=== PATIENT | female | born 1995 | race African-American/Black ===

== ENCOUNTER → 2017-07-24 | Day surgery (SDC) | payer BC ==
--- NOTE | 2017-07-23 14:22 | Diagnostic Imaging Report ---
PROCEDURE:X-RAY ABDOMEN - KUB COMPARISON:[facility], CT, CT ABDOMEN/PELVIS WO, 07/12/2017, 11:30. INDICATIONS:PREOPERATIVE XRAY FOR KIDNEY STONE SURGERY FINDINGS: Nonobstructed bowel gas pattern. Right double-J internal ureteral stent in place. 5 mm radiopaque density projecting in the expected location of the distal right pelvis/proximal right ureter, likely corresponds to previously visualized nonobstructing calculus. 3 mm nonobstructing calculus in the mid to inferior aspect of the left renal shadow. No other radiopaque densities project over the expected course of the ureters or bladder. No acute bony abnormalities. CONCLUSION: 1. 5 mm calculus in the distal right pelvis/proximal right ureter. 2. 3 mm nonobstructing calculus in the mid to inferior aspect of the left renal shadow. 3. Right double-J internal ureteral stent in place. Sanchez Iglesias M.D. Dictated by: Sanchez Iglesias M.D. on 07/23/2017 at 14:30 Electronically approved by: Sanchez Iglesias M.D. on 07/23/2017 at 14:30
[~2017-07-24] MED LIST: BACTRIM DS TAB1 EACH PO; CEFTRIAXONE SOD 1 GM VIAL ONE; DEXAMETHASONE SOD PHOS INJ 4 MG/ML VIAL IV ONE; FENTANYL CITRATE/PF 100MCG/2 ML INJ ONE; LIDOCAINE HCL 2% LOCAL INJ 5 ML SDV VIAL INJ ONE; MIDAZOLAM HCL 2 MG/2 ML VIAL ONE; ONDANSETRON HCL INJ 2 MG/ML VIAL IV ONE; PROPOFOL IV EMULSION 10 MG/ML 20 ML VIAL IV ONE; SEVOFLURANE INHAL SOLN 250 ML PEN BTL INH ONE; TYLENOL WITH C1 EACH PO
--- NOTE | 2017-07-24 20:08 | Operative Report ---
DATE OF PROCEDURE: July 24, 2017 PREOPERATIVE DIAGNOSES 1. Indwelling ureteral stent. 2. Right ureteral calculus. 3. Right hydronephrosis. POSTOPERATIVE DIAGNOSES 1. Indwelling ureteral stent. 2. Right ureteral calculus. 3. Right hydronephrosis. PROCEDURES 1. Cystourethroscopy with removal of right indwelling stent (complicated secondary to incrustation). 2. Cystourethroscopy with stone manipulation pushing the stone from the ureter into the renal pelvis (entirely separate procedure for ureteral calculus). 3. Staged shockwave lithotripsy (entirely separate procedure for kidney stone). 4. Supervision of fluoroscopy. 5. Interpretation of retrograde pyelography. ANESTHESIA: General. ESTIMATED BLOOD LOSS: Minimal. COMPLICATIONS: None. INDICATIONS: Malorie Villavicencio is a 22-year-old female with a history of a 6-mm proximal ureteral stone. She and I had a long discussion about the alternatives, risks and benefits including doing nothing, shockwave lithotripsy, percutaneous surgery. She voiced understanding of options, alternatives, risks and benefits and elected to proceed. PROCEDURE IN DETAIL: After informed consent was obtained, the patient was taken to the operative suite and placed supine on the operating table and underwent general anesthesia by the anesthesia service. She was then placed in the dorsal lithotomy position and sterilely prepped and draped in the standard fashion for cystoscopy. A 22.5-Namibian cystoscope was inserted per urethra. No masses noted. Panendoscopy demonstrated no tumors and no stones. Guidewire was inserted alongside the stent and the stent was seen to be encrusted. It was grasped and it was removed intact. Utilizing a wire and 5-Namibian open-ended catheter and contrast the stone was manipulated into the renal pelvis. The stone was then localized in X, Y, and Z planes. A total of 3000 shocks were delivered to the stone. The patient tolerated the procedure well with good fragmentation. The stent was removed. The bladder was drained and the patient was awakened from anesthesia and transported to the recovery room in excellent condition. SUPERVISION OF FLUOROSCOPY AND INTERPRETATION OF RETROGRADE PYELOGRAPHY: I was present the entire procedure, and I supervised the use of fluoroscopy. There was no radiologist present. Attention was turned toward the right ureter and it was catheterized with a 5-Namibian open-ended catheter and retrograde pyelogram was performed and revealed previous ureteral calculus in the renal pelvis, mild hydronephrosis and removal of the ureteral stent. Job#: [id number] GH
--- NOTE | 2017-08-09 08:30 | Discharge Summary ---
PRINCIPAL DIAGNOSES 1. Right ureterolithiasis. 2. Morbid obesity. 3. Right flank pain. 4. Dehydration. 5. Nausea and vomiting. SECONDARY DIAGNOSIS: Morbid obesity. CHIEF COMPLAINT: Flank pain. HISTORY OF PRESENT ILLNESS: A 22-year-old woman developing right flank pain. Refer to the H and P for further details. HOSPITAL COURSE: Patient was found to have right ureterolithiasis with right flank pain and treated with IV fluids and IV antibiotics. Urology consulted to assist in management. She had morbid obesity and dehydration. Rehydrated and nausea and vomiting treated with antiemetics. Patient did well and subsequently transitioned out of the hospital. FOLLOWUP: Primary care doctor in 1 week and urology in 2 weeks. CONDITION ON DISCHARGE: Stable and improving. DISCHARGE LOCATION: Home. EFRAIN HANSEN MD Job#: [id number] CT
== END | disposition home or self-care (01) ==
LOC: OR 11:21
PROVIDERS: ATTEND Urology
DX: N20.1 Calculus of ureter (principal); N13.30 Unspecified hydronephrosis; Z46.6 Encounter for fitting and adjustment of urinary device; J06.9 Acute upper respiratory infection, unspecified; E66.01 Morbid (severe) obesity due to excess calories; E86.0 Dehydration; F41.9 Anxiety disorder, unspecified
CPT/HCPCS: 50590; 74000; 81025 ×2; C1758; J0696; J1100; J2001; J2250; J2405

== ENCOUNTER 2017-09-16 12:41 | Observation (INO) | payer BC ==
[~2017-09-16] VITALS: Ht 175.3 cm; Wt 125.7 kg
[~2017-09-16 12:41] MED LIST changes: -CEFTRIAXONE SOD 1 GM VIAL ONE; -DEXAMETHASONE SOD PHOS INJ 4 MG/ML VIAL IV ONE; -FENTANYL CITRATE/PF 100MCG/2 ML INJ ONE; -LIDOCAINE HCL 2% LOCAL INJ 5 ML SDV VIAL INJ ONE; -MIDAZOLAM HCL 2 MG/2 ML VIAL ONE; -ONDANSETRON HCL INJ 2 MG/ML VIAL IV ONE; -PROPOFOL IV EMULSION 10 MG/ML 20 ML VIAL IV ONE; -SEVOFLURANE INHAL SOLN 250 ML PEN BTL INH ONE
--- OUTSIDE RECORDS SUMMARY | 2017-09-16 12:44 | XMS REPORT ---
Author Author [facility] Address Unknown Phone Unavailable Care Team Providers Care Film Librarian Name Role Phone LAZARA VILLAREAL Unavailable Unavailable EFRAIN HANSEN Unavailable Unavailable Problems This patient has no known problems. Allergies, Adverse Reactions, Alerts This patient has no known allergies or adverse reactions. Medications This patient has no known medications. Results Test Description Test Time Test Comments Text Results Atomic Results Result Comments ABDOMEN-1VIEW (KUB) [place] [address] Patient Name: LILIANA BROOKE MR #: [id number] : 1995 Age/Sex: 22/F Req #: [id number] Adm Physician: Ordered by: LAZARA VILLAREAL MD Report #: [id number] Location: OR Room/Bed: Procedure: [id number] DX/ABDOMEN-1VIEW (KUB) Exam Date: 07/23/17 Exam Time : 1335 REPORT STATUS: Signed PROCEDURE: X-RAY ABDOMEN - KUB COMPARISON: [facility], CT, CT ABDOMEN/PELVIS WO, 07/12/2017, 11:30. INDICATIONS: PREOPERATIVE XRAY FOR KIDNEY STONE SURGERY FINDINGS: Nonobstructed bowel gas pattern. Right double-J internal ureteral stent in place. 5 mm radiopaque density projecting in the expected location of the distal right pelvis/proximal right ureter, likely corresponds to previously visualized nonobstructing calculus. 3 mm nonobstructing calculus in the mid to inferior aspect of the left renal shadow. No other radiopaque densities project over the expected course of the ureters or bladder. No acute bony abnormalities. CONCLUSION: 1. 5 mm calculus in the distal right pelvis/proximal right ureter. 2. 3 mm nonobstructing calculus in the mid to inferior aspect of the left renal shadow. 3. Right double-J internal ureteral stent in place. Yemi Iglesias M.D. Dictated by: Yemi Iglesias M.D. on 07/23/2017 at 14:30 Electronically approved by: Yemi Iglesias M.D. on 07/23/2017 at 14:30 Dictated By: YEMI IGLESIAS MD 1430 Transcribed By: VESTA on 07/23/17 1430 COPY TO: LAZARA VILLAREAL MD ABDOMEN-1VIEW (KU) [place] [address] Patient Name: LILIANA BROOKE MR #: [id number] : 1995 Age/Sex: 22/F Req #: [id number] Adm Physician: EFRAIN HANSEN MD Ordered by: LAZARA VILLAREAL MD Report #: [id number] Location: [facility] Room/Bed: [place] [address] _ Procedure: [id number] DX/ABDOMEN-1VIEW (KUB) Exam Date: 07/13/17 Exam Time: 1249 REPORT STATUS: Signed EXAM: Abdomen, one view INDICATION: Pain. COMPARISON: Abdomen one view 07/13/2017. CT abdomen and pelvis 07/12/2017 FINDINGS: LINES: None. Bowel: No air fluid levels.. No pneumoperitoneum.. Moderate amount of retained feces and air are noted in the colon and rectum. Calculus again noted to project over the proximal right ureter at the level of the right transverse process of L2. No calcifications project over the renal shadows, expected course of the left ureter, and bladder. Soft tissues: Normal. Bones: No acute osseous abnormality. Impression: Right ureteral calculus. Signed by: Dr. Jade Tejada M.D. on 07/13/2017 1:13 PM Dictated By: JADE TEJADA MD 1313 COPY TO: LAZARA VILLAREAL MD ABDOMEN-1VIEW (KUB) [place] [address] Patient Name: LILIANA BROOKE MR #: [id number] : 1995 Age/Sex: 22/F Req #: [id number] Adm Physician: EFRAIN HANSEN MD Ordered by: LAVERNE WHITEHEAD MD Report #: [id number] Location: [facility] Room/Bed: [place] [address] Procedure: [id number] DX/ABDOMEN-1VIEW (KUB) Exam Date: 07/13/17 Exam Time: 0525 REPORT STATUS: Signed EXAM: ABDOMEN- 1VIEW (KUB), supine DATE: 07/13/2017 7:00 AM Time stamp on exam: 0524 hours INDICATION: Follow-up stone COMPARISON: CT of the abdomen and pelvis without IV contrast July 12, 2017 FINDINGS: LINES/TUBES: None BOWEL PATTERN: No evidence for obstruction. SOFT TISSUES: Stable position 6 mm stone in the right proximal ureter at the L2/L3 level. LUNG BASES: Not included BONES: No acute findings. IMPRESSION: Stable position 6 mm stone in the right proximal ureter at the L2/L3 level. Signed by: Dr. Lana Rivers M.D. on 07/13/2017 6:21 AM Dictated By: LANA RIVERS MD 0 Transcribed By: MILA on 07/13/17620 COPY TO: LAVERNE WHITEHEAD MD CT ABDOMEN/PELVIS WO [place] [address] Patient Name: LILIANA BROOKE MR #: [id number] : 1995 Age/Sex: 22/F Req #: [id number] Adm Physician: Ordered by: REGULO HARTLEY Report #: [id number] Location: ER Room/Bed: Procedure: [id number] CT/CT ABDOMEN/PELVIS WO Exam Date: 07/12/17 Exam Time: 1120 REPORT STATUS: Signed EXAM: CT Abdomen and Pelvis WITHOUT contrast INDICATION: COMPARISON: None. TECHNIQUE : Abdomen and pelvis were scanned utilizing a multidetector helical scanner from the lung base to the pubic symphysis without administration of IV contrast. Absence of intravenous contrast decreases sensitivity for detection of focal lesions and vascular pathology. Coronal and sagittal reformations were obtained. Renal stone protocol was performed. IV CONTRAST: None ORAL CONTRAST: Water COMPLICATIONS: None RADIATION DOSE : Total DLP: 904 mGy*cm Estimated effective dose: (DLP x 0.015 x size factor) mSv CTDIvol has been reviewed. It is below the limits set by the Radiation Protocol Committee (RPC). FINDINGS: LINES and TUBES : None. LOWER THORAX: Unremarkable HEPATOBILIARY: Unenhanced liver is unremarkable. No biliary ductal dilation. GALLBLADDER: No radio -opaque stones or sludge. No wall thickening. SPLEEN: No splenomegaly. PANCREAS: No focal masses or ductal dilatation. ADRENALS: No adrenal nodules KIDNEYS/URETERS: 6 mm obstructing proximal right ureteral calculus with minimal right hydronephrosis. 4 mm calculus in the lower pole of the left kidney. GI TRACT: No abnormal distention, wall thickening, or evidence of bowel obstruction. Appendix is normal. PELVIC ORGANS/BLADDER: Unremarkable. LYMPH NODES: No lymphadenopathy. VESSELS: Unremarkable. PERITONEUM / RETROPERITONEUM: No free air or fluid. BONES: Unremarkable. SOFT TISSUES: Small narrow neck fat-containing supraumbilical ventral hernia. IMPRESSION: 1. 6 mm obstructing proximal right ureteral calculus with minimal right hydronephrosis. 2. 4 mm nonobstructive left renal calculus. Signed by: Dr. Richy Hickey MD on 07/12/2017 11:51 AM Dictated By: RICHY HICKEY MD 1151 Transcribed By : MILA on 07/12/17 1151 COPY TO: REGULO HARTLEY
--- OUTSIDE RECORDS SUMMARY | 2017-09-16 12:44 | XMS REPORT | Clinical Summary ---
Author Author [facility] Address Unknown Phone Unavailable Care Team Providers Care Hand Polisher Name Role Phone Joy Novoa MD PCP Allergies No Known Allergies Current Medications Prescription Sig. Disp. Refills Start End Date Status Date acetaminophen-codeine TK 1 T PO Q 4 H PRN P 0 07/14/20 Active (TYLENOL WITH CODEINE #3) 17 300-30 mg per tablet ibuprofen (ADVIL,MOTRIN) Take 1 tablet (800 mg 21 tablet 0 09/08/19 10/09/19 Active 800 MG tablet total) by mouth 3 (three) 18 18 times a day for 30 days. tamsulosin (FLOMAX) 0.4 Take 1 capsule (0.4 mg 30 capsule 0 09/08/19 10/09/19 Active mg capsule,extended total) by mouth daily for 18 18 release 24hr 30 days. HYDROcodone-acetaminophen Take 1 tablet by mouth 20 tablet 0 09/08/19 09/11/19 (NORCO) 7.5-325 mg per every 6 (six) hours as 18 18 tablet needed for moderate pain for up to 20 doses. Max Daily Amount: 4 tablets Active Problems Not on file Encounters Date Type Specialty Care Team Description 09/10/2017 Orders Only General Surgery Yann Zuniga RN Morbid obesity due to excess calories (Primary Dx) 09/08/2017 Emergency Emergency Medicine Madan Naqvi, Kidney stone (Primary Dx) DO 09/03/2017 Office Visit General Surgery Mohan Lay MD Morbid obesity due to excess calories (Primary Dx); Essential hypertension 09/03/2017 Orders Only General Surgery Yann Zuniga RN Morbid obesity due to excess calories (Primary Dx) after 09/15/2016 Family History Medical History Relation Name Comments Hypertension Father Hypertension Mother Relation Name Status Comments Father Mother Social History Tobacco Use Types Packs/Day Years Used Date Never Smoker Smokeless Tobacco: Never Used Alcohol Use Drinks/Week oz/Week Comments Yes occassionally Sex Assigned at Date Recorded Not on file Last Filed Vital Signs Vital Sign Reading Time Taken Blood Pressure 116/59 09/08/2017 1:05 PM CAREER RESOURCE TECHNICIAN Pulse 83 09/08/2017 1:05 PM CAREER RESOURCE TECHNICIAN Temperature 36.7 C (98.1 F) 09/08/2017 1:05 PM CAREER RESOURCE TECHNICIAN Respiratory Rate 18 09/08/2017 1:05 PM CAREER RESOURCE TECHNICIAN Oxygen Saturation 98% 09/08/2017 1:05 PM CAREER RESOURCE TECHNICIAN Inhaled Oxygen - - Concentration Weight 123 kg (270 lb 9.6 oz) 09/03/2017 11:28 AM CAREER RESOURCE TECHNICIAN Height 172.7 cm (5' 8") 09/08/2017 10:17 AM CAREER RESOURCE TECHNICIAN Body Mass Index 41.14 09/03/2017 11:28 AM CAREER RESOURCE TECHNICIAN Plan of Treatment Date Type Specialty Care Team Description 09/23/2017 Consult Weight Management Mohan Lay MD [address] [facility] [address] [place] [address] Armando Gardner, TRU 09/23/2017 Consult Weight Management Mohan Lay MD [address] [facility] [address] [place] [address] Terri Fang, [employer] Health Maintenance Due Date Last Done Comments PAP SMEAR 2015 INFLUENZA VACCINE 03/05/2017 Results * Urinalysis (09/08/2017 12:24 PM) Component Value Ref Range Glucose, UA Negative Negative Bilirubin, UA Negative Negative Ketones, UA Negative Negative Specific gravity, UA 1.020 1.001 - 1.035 Blood, UA Moderate (A) Negative pH, UA 7.0 5.0 - 8.5 Protein, UA Negative Negative Urobilinogen, UA <2.0 <2.0 Nitrite, UA Negative Negative Leukocyte esterase, UA Trace (A) Negative Color, UA Yellow Appearance, UA Cloudy Specimen Performing Laboratory Urine [facility], [address] [address] * hCG qualitative, urine screen (09/08/2017 12:24 PM) Component Value Ref Range hCG qualitative, urine NegativeComment: Sensitivity of HCG test: 25 mIU/mL Specimen Performing Laboratory Urine [facility] OF PATHOLOGY AND GENOMIC MEDICINE, [facility] [id number] [place] [address] * CT Renal Stone Protocol (09/08/2017 11:17 AM) Specimen Performing Laboratory [facility] [address] [place] [address] Narrative EXAMINATION:CT RENAL STONE PROTOCOL CLINICAL HISTORY: 22 years Femaleleft kidney stone COMPARISON:None. TECHNIQUE:CT of the abdomen and pelvis without intravenous contrast. Absence of intravenous contrast decreases sensitivity for detection of focal lesions and vascular pathology. CT imaging was performed with iterative reconstruction techniques and/or automated exposure control to reduce radiation dose. FINDINGS: LOWER THORAX: 1. Lung bases are clear. ABDOMEN: 1.Unenhanced liver, gallbladder, spleen, adrenal glands, pancreas are normal in appearance. 2.The course of the left ureter is obscured in the pelvis. There is a 3 mm calcification in the expected region of the very distal left ureter approximately 1 cm from the UVJ (series 2, image 171). There is no left-sided hydronephrosis, but there is some mild left-sided caliectasis. No other left-sided calcifications. 3.4 mm nonobstructing calyceal stone lower pole right kidney. No right hydronephrosis or ureteral calcification. 4.Absence of oral contrast decreases sensitivity for detection of bowel pathology. No obstruction. The appendix is normal. 5.Abdominal aorta is nonaneurysmal. There is no abdominal adenopathy or ascites. There is a small fat-containing periumbilical hernia. There is also a small ventral supraumbilical fat-containing hernia 4 cm above the umbilicus. No free air. PELVIS: 1.No pelvic adenopathy or mass. There may be trace physiologic fluid in the pelvis. 2.Bones are intact. IMPRESSION: 1.Indeterminant 3 mm calcification within the left pelvis. Given the history of left flank pain and some mild left-sided caliectasis, this is most concerning for a small stone in the distal left ureter. Phlebolith is not entirely excluded. Clinical correlation. Follow-up can be obtained as indicated. 2.4 mm nonobstructing stone lower pole right kidney. 3.Additional findings as above. [facility]-[id number] Procedure Note [facility], Radiology Results Incoming - 09/08/2017 11:39 AM CAREER RESOURCE TECHNICIAN EXAMINATION: CT RENAL STONE PROTOCOL CLINICAL HISTORY: 22 years Female left kidney stone COMPARISON: None. TECHNIQUE: CT of the abdomen and pelvis without intravenous contrast. Absence of intravenous contrast decreases sensitivity for detection of focal lesions and vascular pathology. CT imaging was performed with iterative reconstruction techniques and/or automated exposure control to reduce radiation dose. FINDINGS: LOWER THORAX: 1. Lung bases are clear. ABDOMEN: 1. Unenhanced liver, gallbladder, spleen, adrenal glands, pancreas are normal in appearance. 2. The course of the left ureter is obscured in the pelvis. There is a 3 mm calcification in the expected region of the very distal left ureter approximately 1 cm from the UVJ (series 2, image 171). There is no left-sided hydronephrosis, but there is some mild left-sided caliectasis. No other left-sided calcifications. 3. 4 mm nonobstructing calyceal stone lower pole right kidney. No right hydronephrosis or ureteral calcification. 4. Absence of oral contrast decreases sensitivity for detection of bowel pathology. No obstruction. The appendix is normal. 5. Abdominal aorta is nonaneurysmal. There is no abdominal adenopathy or ascites. There is a small fat-containing periumbilical hernia. There is also a small ventral supraumbilical fat-containing hernia 4 cm above the umbilicus. No free air. PELVIS: 1. No pelvic adenopathy or mass. There may be trace physiologic fluid in the pelvis. 2. Bones are intact. IMPRESSION: 1. Indeterminant 3 mm calcification within the left pelvis. Given the history of left flank pain and some mild left-sided caliectasis, this is most concerning for a small stone in the distal left ureter. Phlebolith is not entirely excluded. Clinical correlation. Follow-up can be obtained as indicated. 2. 4 mm nonobstructing stone lower pole right kidney. 3. Additional findings as above. [facility]-[id number] * Estimated GFR (09/08/2017 10:34 AM) Component Value Ref Range GFR Non Af Amer 68 mL/min/1.73 m2 GFR Af Amer 83 mL/min/1.73 m2 Comment: Chronic kidney disease: <60 mL/min/1.73m2 Kidney failure: <15 mL/min/1.73m2 The estimated GFR is calculated from the IDMS-traceable Modification of Diet in Renal Disease Equation. The accuracy of the calculation is poor when the creatinine is normal. Calculated values >90 mL/min/1.73m2 are not reported. This equation has not been validated in children (<18 years), women, the elderly (>70 years), or ethnic groups other than Caucasians and Americans. Specimen Performing Laboratory Plasma specimen [facility] OF [facility]IC[facility] [address] * CBC with platelet and differential (09/08/2017 10:34 AM) Component Value Ref Range WBC 7.23 4.50 - 11.00 k/uL RBC 4.22 4.20 - 5.50 m/uL HGB 11.7 (L) 12.0 - 16.0 g/dL HCT 37.0 37.0 - 47.0 % MCV 87.7 82.0 - 100.0 fL MCH 27.7 27.0 - 34.0 pg MCHC 31.6 31.0 - 37.0 g/dL RDW - SD 40.5 37.0 - 55.0 fL MPV 9.4 8.8 - 13.2 fL Platelet count 430 (H) 150 - 400 k/uL Neutrophils 61.4 39.0 - 69.0 % Lymphocytes 29.3 25.0 - 45.0 % Monocytes 7.3 0.0 - 10.0 % Eosinophils 1.7 0.0 - 5.0 % Basophils 0.3 0.0 - 1.0 % Specimen Performing Laboratory Blood [facility] [address] * Comprehensive metabolic panel (09/08/2017 10:34 AM) Component Value Ref Range Sodium 138 128 - 145 mEq/L Potassium 4.7 3.6 - 5.1 mEq/L CO2 26 18 - 33 mEq/L Chloride 107 98 - 108 mEq/L Glucose 102 73 - 118 mg/dL Calcium 9.3 8.0 - 10.3 mg/dL BUN 15 7 - 22 mg/dL Creatinine 1.0 0.6 - 1.2 mg/dL Alkaline phosphatase 79 42 - 141 U/L ALT 17 10 - 47 U/L AST 28 11 - 38 U/L Total bilirubin 0.5 0.2 - 1.6 mg/dL Albumin 3.7 3.3 - 5.5 g/dL Protein 6.9 6.4 - 8.1 g/dL Anion gap 5 (L) 7 - 15 mEq/L Comment: Starting from November , anion gap calculation no longer incorporates potassium. Please note the change. A/G ratio 1.2 0.7 - 3.8 Specimen Performing Laboratory Plasma specimen [facility] OF PATHOLOGY [facility] GENOMIC MEDICINE, [address] [address] after 09/15/2016 Insurance Payer Benefit Subscriber ID Type Phone Address Plan / Group BCBS [employer] xxxxxxxxxxxx [facility] [place] [address]
[2017-09-16] MEDS ORDERED: KETOROLAC TROMETHAMINE 30 MG/ML VIAL IV STA (13:04)
[2017-09-16 13:26] LABS: BASOPHILS # (AUTO) 0.1 (0.0-0.1); BASOPHILS % 0.9 % (0.0-1.0); EOSINOPHILS # (AUTO) 0.1 (0.0-0.4); EOSINOPHILS % 1.5 % (0.0-6.0); HEMATOCRIT 37.2 % (34.2-44.1); HEMOGLOBIN 11.8 g/dL (12.0-16.0); LYMPHOCYTES # (AUTO) 1.6 (1.0-3.2); LYMPHOCYTES % 24.8 % (18.0-39.1); MEAN CORPUSCULAR HEMOGLOBIN 27.6 pg (28-32); MEAN CORPUSCULAR HGB CONC 31.7 g/dL (31-35); MEAN CORPUSCULAR VOLUME 87.1 fL (81-99); MONOCYTES # (AUTO) 0.5 (0.2-0.8); MONOCYTES % 7.4 % (4.4-11.3); NEUTROPHILS # (AUTO) 4.3 (2.1-6.9); NEUTROPHILS % 65.1 % (38.7-80.0); PLATELET COUNT 397 x10e3/uL (140-360); RED BLOOD COUNT 4.27 x10e6/uL (3.6-5.1)
[2017-09-16 13:28] LABS: BILIRUBIN,URINE NEGATIVE (NEGATIVE); KETONES,URINE NEGATIVE (NEGATIVE); LEUKOCYTE ESTERASE ,URINE NEGATIVE (NEGATIVE); NITRITE,URINE NEGATIVE (NEGATIVE); URINE UROBILINOGEN 0.2 mg/dL (0.2 - 1)
[2017-09-16 13:29] LABS: COLOR,URINE YELLOW (YELLOW); PROTEIN,URINE DIPSTICK 1+ (NEGATIVE)
[2017-09-16 13:43] LABS: ALANINE AMINOTRANSFERASE 14 IU/L (0-55); ALBUMIN 4.1 g/dL (3.5-5.0); ALBUMIN/GLOBULIN RATIO 1.1 (0.8-2.0); ALKALINE PHOSPHATASE 75 IU/L (40-150); BLOOD UREA NITROGEN 14 mg/dL (7-26); BUN/CREATININE RATIO 15 (6-25); CALCIUM 9.1 mg/dL (8.4-10.2); CARBON DIOXIDE 21 mmol/L (22-29); CHLORIDE 105 mmol/L (98-107); CREATININE, SERUM 0.95 mg/dL (0.57-1.11); EST GLOMERULAR FILTRATION RATE > 60 ML/MIN (60-); GLUCOSE 90 mg/dL (74-118); SODIUM 136 mmol/L (136-145)
[2017-09-16 13:45] LABS: CLARITY,URINE HAZY (CLEAR); EPITHELIAL CELLS,URINE MODERATE /LPF
[2017-09-16 13:47] LABS: BACTERIA,URINE RARE /HPF; RBC,URINE >50 /HPF (0-5)
--- NOTE | 2017-09-16 14:35 | Diagnostic Imaging Report ---
PROCEDURE: CT ABDOMEN AND PELVIS WITHOUT CONTRAST COMPARISON:CT abdomen/pelvis 07/12/17. INDICATIONS:LEFT SIDE PAIN TECHNIQUE: Axial CT images through the abdomen and pelvis were obtained from the lung bases to the pubic symphysis. Coronal and sagittal reformations were created. DLP: 904 mGY*cm FINDINGS: Right kidney: The collecting system in is distended. A calculus in the proximal ureter measures 5 mm. There are no intrarenal calculi. The cortex is edematous. No cortical mass. Left kidney: No renal calculus, mass, or hydronephrosis. Bladder/ureters: The bladder is underdistended but otherwise normal. The right ureter distal to the calculus in the proximal ureter is collapsed. The left ureter is collapsed throughout its course. Liver: Normal attenuation. No mass or intrahepatic biliary ductal dilatation. Spleen: Normal size and attenuation without mass. Gallbladder: Present and is normal. Common bile duct is normal in diameter. Pancreas: Normal attenuation without mass or ductal dilatation. Adrenal Glands: No evidence of mass. Vasculature: Normal morphology and diameter. GI: The stomach is normal. Small bowel and large bowel are normal in diameter with normal wall thickness. The appendix is normal. Peritoneum/Retroperitoneum: No free fluid, fluid collection, or mass. Reproductive organs: The uterus is present and normal morphology. No adnexal mass. MSK: Unremarkable for age. Lung bases: Clear. The visualized portion of the mediastinum is normal. CONCLUSION: Obstructing calculus in the proximal right ureter. There are no intrarenal calculi. The remainder of the abdomen/pelvis is normal. Dictated by: Carmen Lyn M.D. on 09/16/2017 at 14:45 Electronically approved by: Carmen Lyn M.D. on 09/16/2017 at 14:45
[2017-09-16] MEDS ORDERED: SODIUM CHLORIDE 0.9% 1000ML 1,000 ML IV SCH (16:14)
[2017-09-16] MEDS ORDERED: MORPHINE SULFATE 2 MG/ML SYR IV PRN (16:15)
[2017-09-16] MEDS ORDERED: ONDANSETRON HCL INJ 2 MG/ML VIAL IV PRN ×2 (16:15→22:30)
[2017-09-16] MEDS: CEFTRIAXONE SOD 1 GM VIAL IV SCH (16:33)
[2017-09-16] MEDS ORDERED: IBUPROFEN400 MG PO (16:34)
--- OUTSIDE RECORDS SUMMARY | 2017-09-16 16:41 | XMS REPORT | Clinical Summary ---
Author Author [facility] Address Unknown Phone Unavailable Care Team Providers Care Guest Relations Officer Name Role Phone Joy Novoa MD PCP [...] Taken Blood Pressure 116/59 09/08/2017 1:05 PM PULP GRINDER FEEDER Pulse 83 09/08/2017 1:05 PM PULP GRINDER FEEDER Temperature 36.7 C (98.1 F) 09/08/2017 1:05 PM PULP GRINDER FEEDER Respiratory Rate 18 09/08/2017 1:05 PM PULP GRINDER FEEDER Oxygen Saturation 98% 09/08/2017 1:05 PM PULP GRINDER FEEDER Inhaled Oxygen - - Concentration Weight 123 kg (270 lb 9.6 oz) 09/03/2017 11:28 AM PULP GRINDER FEEDER Height 172.7 cm (5' 8") 09/08/2017 10:17 AM PULP GRINDER FEEDER Body Mass Index 41.14 09/03/2017 11:28 AM PULP GRINDER FEEDER Plan of Treatment Date Type Specialty Care Team Description 09/23/2017 Consult Weight Management Mohan Lay MD [address] [facility] [address] [place] [address] Armando Gardner, TRU 09/23/2017 Consult Weight Management Mohan Lay MD [address] [facility] [address] [place] [address] Terri Fang, GEOTECHNICAL INTERN Health Maintenance Due Date Last Done Comments [...] [facility] DEPARTMENT OF PATHOLOGY AND GENOMIC MEDICINE, [address] [address] * hCG qualitative, urine screen (09/08/2017 12:24 PM) Component Value Ref Range hCG qualitative, urine NegativeComment: Sensitivity of HCG test: 25 mIU/mL Specimen Performing Laboratory Urine DEPARTMENT OF PATHOLOGY AND GENOMIC MEDICINE, [facility] [address] [place] [address] * CT Renal Stone Protocol (09/08/2017 11:17 AM) Specimen Performing Laboratory [facility] [address] [place] [address] Narrative EXAMINATION:CT RENAL STONE PROTOCOL CLINICAL HISTORY: [...] pole right kidney. 3.Additional findings as above. [facility]-[id number] Procedure Note [facility], Radiology Results Incoming - 09/08/2017 11:39 AM PULP GRINDER FEEDER EXAMINATION: CT RENAL STONE PROTOCOL CLINICAL HISTORY: [...] right kidney. 3. Additional findings as above. [facility]-[id number] * Estimated GFR (09/08/2017 10:34 AM) Component [...] and Americans. Specimen Performing Laboratory Plasma specimen [facility] OF PATHOLOGY AND GENOMIC MEDICINE[address] [address] * CBC with platelet and differential (09/08/2017 [...] Laboratory Blood [facility]PARTMENT OF [facility]OLOGY AND [facility]OMIC [facility]ICINE[address] [address] * Comprehensive metabolic panel (09/08/2017 10:34 AM) [...] specimen DEPARTMENT OF PATHOLOGY AND GENOMIC MEDICINE, [address] [address] after 09/15/2016 Insurance Payer Benefit Subscriber ID Type Phone Address Plan / Group BCBS [employer] xxxxxxxxxxxx [facility] [place] [address]
--- NOTE | 2017-09-16 19:23 | Consultation ---
DATE OF CONSULTATION: September 16, 2017 UROLOGY CONSULTATION Consultation is called by the ER. CHIEF COMPLAINT/REASON FOR CONSULTATION: Ureteral calculus, urinary tract infection. HISTORY OF PRESENT ILLNESS: Ms. Villavicencio is a 22-year-old female admitted to the hospital with acute right-sided, sharp, severe flank pain. The patient has had dysuria, frequency, urgency. She has been in a normal state of health until one day prior to admission when she began experiencing sharp, severe, right-sided flank pain. PAST MEDICAL HISTORY: Stent placement, shockwave lithotripsy back on July 24, status post negative x-ray afterwards. MEDICATIONS: Please see MAR. ALLERGIES: NKDA. SOCIAL HISTORY: Denied smoking or drinking. FAMILY HISTORY: Denied urologic stones or malignancies. REVIEW OF SYSTEMS: Noncontributory other than for problems mentioned above for 12 organ systems. PHYSICAL EXAMINATION: GENERAL: A young female in no acute distress. VITAL SIGNS: Currently afebrile with stable vital signs. HEENT: Sclerae anicteric. NECK: Supple. BACK: Without costovertebral angle tenderness bilaterally. ABDOMEN: Soft, obese, nontender, nondistended. No palpable mass. No palpable hernias. Right-sided CVAT. EXTREMITIES: Without edema. NEUROLOGIC: Moves extremities. PSYCHIATRIC: Alert. Mood appropriate. SKIN: Intact. Normal color. PERTINENT LABORATORY DATA: CT scan revealing right-sided hydronephrosis and a right proximal 5 mm ureteral calculus. Hemoglobin 12, hematocrit 37, platelet count 397,000, white cell count 6530. Sodium 136, potassium 4.0, chloride 105, bicarb 21, BUN 14, creatinine 0.95, glucose 90. Urinalysis: Greater than 50 reds, 6 to 10 whites. Negative test. IMPRESSION: 1. Urinary tract infection. 2. Microscopic hematuria. 3. Obesity. 4. Hydronephrosis. PLAN: The patient will need a stent placement for the obstructed affected system. Thank you for allowing me to participate in the care of your patient. I will be happy to follow along with you. Job#: [id number] EV cc:EMILY KELLY MD
--- OUTSIDE RECORDS SUMMARY | 2017-09-16 20:52 | XMS REPORT | Clinical Summary ---
Author Author [facility] [employer] Address Unknown Phone Unavailable Care Team Providers Care Greenhouse Superintendent Name Role Phone Joy Novoa MD PCP [...] Taken Blood Pressure 116/59 09/08/2017 1:05 PM ROLL HAULER Pulse 83 09/08/2017 1:05 PM ROLL HAULER Temperature 36.7 C (98.1 F) 09/08/2017 1:05 PM ROLL HAULER Respiratory Rate 18 09/08/2017 1:05 PM ROLL HAULER Oxygen Saturation 98% 09/08/2017 1:05 PM ROLL HAULER Inhaled Oxygen - - Concentration Weight 123 kg (270 lb 9.6 oz) 09/03/2017 11:28 AM ROLL HAULER Height 172.7 cm (5' 8") 09/08/2017 10:17 AM ROLL HAULER Body Mass Index 41.14 09/03/2017 11:28 AM ROLL HAULER Plan of Treatment Date Type Specialty Care Team Description 09/23/2017 Consult Weight Management Mohan Lay MD [address] [facility] [address] [place] [address] Armando Gardner, TRU 09/23/2017 Consult Weight Management Mohan Lay MD [address] [facility] [address] [place] [address] Terri Fang, TECHNICAL SALES DIRECTOR Health Maintenance Due Date Last Done Comments [...] [facility] DEPARTMENT OF PATHOLOGY AND GENOMIC MEDICINE, [address] [address] * hCG qualitative, urine screen (09/08/2017 12:24 PM) Component Value Ref Range hCG qualitative, urine NegativeComment: Sensitivity of HCG test: 25 mIU/mL Specimen Performing Laboratory Urine DEPARTMENT OF PATHOLOGY AND GENOMIC MEDICINE, [facility] [address] [place] [address] * CT Renal Stone Protocol (09/08/2017 11:17 AM) Specimen Performing Laboratory [facility] [address] [place] [address] Narrative EXAMINATION:CT RENAL STONE PROTOCOL CLINICAL HISTORY: [...] pole right kidney. 3.Additional findings as above. [facility]-[id number] Procedure Note [facility], Radiology Results Incoming - 09/08/2017 11:39 AM ROLL HAULER EXAMINATION: CT RENAL STONE PROTOCOL CLINICAL HISTORY: [...] right kidney. 3. Additional findings as above. [facility]-[id number] * Estimated GFR (09/08/2017 10:34 AM) Component [...] and Americans. Specimen Performing Laboratory Plasma specimen [facility] OF PATHOLOGY AND GENOMIC MEDICINE[address] [address] * CBC with platelet and differential (09/08/2017 [...] Laboratory Blood DEPARTMENT OF PATHOLOGY AND GENOMIC MEDICINE[address] [address] * Comprehensive metabolic panel (09/08/2017 10:34 AM) [...] specimen DEPARTMENT OF PATHOLOGY AND GENOMIC MEDICINE, [address] [address] after 09/15/2016 Insurance Payer Benefit Subscriber ID Type Phone Address Plan / Group BCBS ROM[employer] xxxxxxxxxxxx [facility] [place] [address]
[2017-09-16 21:26] VITALS: BP 102/64
[2017-09-16 21:52] VITALS: BP 102/64
[2017-09-16 21:53] VITALS: BP 102/64
[2017-09-16] MEDS: MORPHINE SULFATE 2 MG/ML SYR IV PRN (22:30)
[2017-09-17] VITALS: BP 110/59
[2017-09-17 04:00] VITALS: BP 126/63
[2017-09-17] MEDS: SODIUM CHLORIDE 0.9% 1000ML 1,000 ML IV SCH ×3 (04:59→08:40)
[2017-09-17] MEDS: CEFTRIAXONE SOD 1 GM VIAL IV SCH (05:30)
[2017-09-17] MEDS ORDERED: ACETAMINOPHEN/CODEINE 300MG - 30MG TAB PO PRN (06:15)
[2017-09-17] MEDS ORDERED: IOPAMIDOL 610MG/1ML 300 MG/ML VIAL IV ONE (06:39)
--- NOTE | 2017-09-17 07:13 | History and Physical ---
PRIMARY CARE PHYSICIAN: Dr. Dewitt CHIEF COMPLAINT: Right flank pain. HISTORY OF PRESENT ILLNESS: This is a 22-year-old woman with a history of right ureterolithiasis, who had a stent placed back in July 2017, now developing right flank discomfort with nausea and vomiting prompting the visit to the hospital. Denies any fever. PAST MEDICAL HISTORY: Right ureterolithiasis, morbid obesity, dehydration, microscopic hematuria, right hydronephrosis, status post right ureteral stent placement in July 2017. PAST SURGICAL HISTORY: Right ureteral stent placement. ALLERGIES: PER ELECTRONIC MEDICAL RECORDS. FAMILY HISTORY/SOCIAL HISTORY: Patient is single. She has no children. Occasional alcohol. No cigarettes or illicits. MEDICATIONS: Per electronic medical record. REVIEW OF SYSTEMS: Denies any dizziness or chest pain. PHYSICAL EXAMINATION VITAL SIGNS: Reviewed. GENERAL: A tired-appearing woman resting in bed. HEENT: Anicteric. Pupils respond to light. No oral lesions. CARDIOVASCULAR: Normal S1 and S2. LUNGS: Moderate breath sounds. ABDOMEN: Soft, nontender and nondistended. Right flank mildly tender. EXTREMITIES: No edema. SKIN: Dry. PSYCHIATRIC: Normal affect. LABS: Reviewed. MEDICATIONS: Reviewed. ASSESSMENT AND PLAN: This is a 22-year-old woman with: 1. Right flank pain/right ureterolithiasis: Continue rehydration and possible stent today. 2. Obesity: Body mass index is 39.9. Will screen for diabetes. 3. Right flank pain: P.r.n. pain medication. 4. Urinary tract infection: Will continue with ceftriaxone. 5. Prophylaxis: Will use sequential compression devices. 6. Disposition: Possible stent placement today. Continue rehydration. Job#: [id number] ID
[2017-09-17 08:05] VITALS: BP 109/72
[2017-09-17 08:20] VITALS: BP 109/72
[2017-09-17] MEDS: MORPHINE SULFATE 2 MG/ML SYR IV PRN (08:41)
[2017-09-17 09:27] LABS: CHOL/HDL RATIO 4.4 (3.0-3.6)
--- NOTE | 2017-09-17 11:57 | Operative Report ---
DATE OF PROCEDURE: September 17, 2017 PREOPERATIVE DIAGNOSES 1. Microscopic hematuria. 2. Hydronephrosis, right side. POSTOPERATIVE DIAGNOSES 1. Microscopic hematuria. 2. Hydronephrosis, right side. PROCEDURES 1. Cystourethroscopy with left ureteral catheterization and left retrograde pyelogram (entirely separate procedure for microscopic hematuria). 2. Cystourethroscopy with insertion of right indwelling ureteral stent (entirely separate procedure for diagnostic right hydronephrosis). 3. Supervision of fluoroscopy. 4. Interpretation of retrograde ureteropyelography. ANESTHESIA: General. ESTIMATED BLOOD LOSS: Minimal. COMPLICATIONS: None. INDICATIONS FOR PROCEDURE: Mrs. Villavicencio is a 22-year-old female with obstructive and infected right system. She and I had a long discussion about alternatives, risks and benefits including doing nothing, stent placement, percutaneous nephrostomy. She voiced understanding of the options, alternatives, risks and benefits and elected to proceed. PROCEDURE IN DETAIL: After informed consent was obtained, the patient was preoperatively identified. She was placed supine on the operating table and underwent general anesthesia by the anesthesia service. She was then placed in the dorsal lithotomy position and sterilely prepped and draped in the standard fashion for cystoscopy. A 23.5-Cambodian cystoscope was inserted per urethra revealing a normal urethra. It was noted to pass easily. No tumors. No stones. Both ureteral orifices were within normal anatomic location and position. Bilateral retrograde pyelograms were performed. The left was normal. The right revealed a dense 5 x 6 mm proximal ureteral calculous with moderate efflux that flushed into the renal pelvis. The ureteral stent was then deployed with the coil in the renal pelvis and a coil in the bladder. The patient's bladder was drained. She was awakened from anesthesia and transported to the recovery room in excellent condition. SUPERVISION OF FLUOROSCOPY, INTERPRETATION OF RETROGRADE URETERAL PYELOGRAPHY: I was present throughout the entire procedure and I supervised the use of fluoroscopy as no radiologist was present at any time during this procedure. Attention was turned toward the left and right ureteral orifices. It was catheterized with a 5-Cambodian open-ended catheter. Retrograde pyelogram was performed. The left was normal. The right revealed a delicate distal ureter. Proximally, there was a 5 x 6 mm stone, which was noted in the renal pelvis. Postoperative views on the right side revealed the stent in adequate position. Job#: [id number] RI
[2017-09-17 12:13] VITALS: BP 99/62
[2017-09-17] MEDS ORDERED: LEVAQUIN500 MG PO (13:46)
[2017-09-17 15:34] VITALS: BP 112/63
[2017-09-17] MEDS ORDERED: SEVOFLURANE INHAL SOLN 250 ML PEN BTL ONE (17:39)
[2017-09-17] MEDS ORDERED: LIDOCAINE HCL 2% LOCAL INJ 5 ML SDV VIAL INJ ONE (17:39)
[2017-09-17] MEDS ORDERED: DEXAMETHASONE SOD PHOS INJ 4 MG/ML VIAL ONE (17:39)
[2017-09-17] MEDS ORDERED: PROPOFOL IV EMULSION 10 MG/ML 20 ML VIAL ONE (17:39)
[2017-09-17] MEDS ORDERED: ONDANSETRON HCL INJ 2 MG/ML VIAL ONE (17:39)
[2017-09-17] MEDS ORDERED: FENTANYL CITRATE/PF 100MCG/2 ML INJ ONE (17:54)
[2017-09-17] MEDS ORDERED: MIDAZOLAM HCL 2 MG/2 ML VIAL ONE (17:54)
--- NOTE | 2017-10-02 07:04 | Discharge Summary ---
PRINCIPAL DIAGNOSES 1. Right flank pain. 2. Right ureterolithiasis. 3. Obesity. 4. Urinary tract infection. SECONDARY DIAGNOSIS: Right ureterolithiasis. CHIEF COMPLAINT: Right flank pain. HISTORY OF PRESENT ILLNESS: This is a 22-year-old woman with right flank pain. Please refer to the H and P for further details. HOSPITAL COURSE: The patient was found to have right flank pain with right ureterolithiasis. Underwent stent placement, also rehydration. The patient had obesity with BMI 39.9. Was screened for diabetes. Hemoglobin A1c was 4.8, and LDL was 84. Did not have diabetes. The patient was treated for the flank pain with pain medications and urinary tract infection with ceftriaxone. The patient subsequently was transitioned home with plan to follow up. DISCHARGE MEDICATIONS: Per electronic medical record. FOLLOWUP 1. With primary care doctor in 1 week. 2. Urology in 2 weeks. CONDITION ON DISCHARGE: Stable and improving. DISCHARGE LOCATION: Home. EFRAIN HANSEN MD Job#: [id number]
== END 2017-09-17 14:40 | disposition home or self-care (01) ==
LOC: ER 12:41 → ERHOLD 16:39 → UNDOADMOB 16:39 → IMCU 20:49
PROVIDERS: ADMIT Internal Medicine; ATTEND Internal Medicine
DX: N13.2 Hydronephrosis with renal and ureteral calculous obstruction (principal); N39.0 Urinary tract infection, site not specified; R31.9 Hematuria, unspecified; E66.9 Obesity, unspecified; Z68.39 Body mass index [BMI] 39.0-39.9, adult
CPT/HCPCS: 36415 ×2; 52332; 74176; 74420; 80053; 80061; 81001; 81025; 83036; 85025; 87086; 99284; C2617; G0378 ×2; J0696; J1100; J1885; J2001; J2250; J2270 ×2; J2405; J7030 ×2; Q9967

== ENCOUNTER → 2017-10-07 | Outpatient (CLI) | payer BC ==
[~2017-10-07] MED LIST changes: +IBUPROFEN400 MG PO; +LEVAQUIN500 MG PO
--- NOTE | 2017-10-07 12:28 | Diagnostic Imaging Report ---
PROCEDURE:X-RAY ABDOMEN - KUB COMPARISON:None. INDICATIONS:CHECK STENT PLACEMENT FINDINGS: There is a non-obstructed bowel-gas pattern. No air-fluid levels or pneumoperitoneum. Moderate amount of retained feces is present in the colon and rectum. Right ureteral stent is present with the proximal coil projecting over the expected region of the right renal pelvis and the distal coil projecting over the expected region of the urinary bladder. There are no calcifications projected over the renal shadows, expected course of the ureters or bladder. There are no acute osseous abnormalities. The lung bases are clear. CONCLUSION: Right ureteral stent. No acute radiographic abnormality. Dictated by: Maury Almaraz M.D. on 10/07/2017 at 12:27 Electronically approved by: Maury Almaraz M.D. on 10/07/2017 at 12:27
== END ==
LOC: RAD 10:52
PROVIDERS: ATTEND Urology
DX: N20.0 Calculus of kidney (principal)
CPT/HCPCS: 74018